=== PATIENT | female | born 1990 | race Caucasian/White ===

== ENCOUNTER 2018-05-12 16:36 | Day surgery (SDC) | payer OTHER ==
[2018-05-12 17:30] VITALS: BMI 46.6
--- NOTE | 2018-05-12 17:42 | PDOC.LDHP ---
Addendum entered and electronically signed by Marcin Dasilva MD 05/12/18 17:58 : 12 point ROS performed. Negative except for what is documented in the HPI. Original Note: Labor and Delivery H&P Chief complaint: abdominal pain HPI: 27 yo at 38 wk. 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 In process of getting dressed, she had pain that started in her RLQ. Once she arrived to work pain was waxing and waning. Was concerned she was in labor and came for evaluation. Pain had resolved by the time she arrived to L&D. Denies LOF or bleeding. Current gestational age (weeks): 37 (37.6) Due date: 05/27/18 Grav: 1 Para: 0 OB History Details: uncomplicated Current complications: none Past Medical History: hypothyroidism- on synthroid Current medications: pre-sukumar vitamins, other (synthroid 75 mcg.) Previous surgical history: other (tonsilecotmy) Allergies/Adverse Reactions: Allergies Allergy/AdvReac Type Severity Reaction Status Date / Time No Known Allergies Allergy Unverified 05/12/18 17:23 Social history: none - Physical Exam Vital signs reviewed and normal: yes General: NAD, resting Heart: RRR Lungs: CTAB Abdomen: other (gravid, RLQ TTP when shifting uterus to the left.) Extremeties: no edema FHT: category 1 - Vaginal Exam cm dilated: 0 (Patient refused) - Plan Plan: other (round ligament pain. given RTC precautions given. D/C home. Discussed with Dr. Britton.) Addendum - Attending - Attending Attestation Date/Time: 05/15/18 0365 I personally evaluated the patient and discussed the management with Dr. Dasilva I agree with the History, Examination, Assessment and Plan documented above with any addition or exceptions noted below. FHT baseline 130's with mod ltv +accels no decel. [place] with irritability not felt by the pt. Reassurance given to the pt. Pt to follow up with Ms Urban as scheduled.
== END 2018-05-12 17:50 | disposition home or self-care (01) ==
LOC: SDC 16:36 → L&D/OP 16:36 → EDSTATUS 16:38 → L&D/OP 17:50
PROVIDERS: ATTEND Advanced Practice Midwife
DX: O99.89 Other specified diseases and conditions complicating pregnancy, childbirth and the puerperium (principal); R10.31 Right lower quadrant pain; O99.283 Endocrine, nutritional and metabolic diseases complicating pregnancy, third trimester; E03.9 Hypothyroidism, unspecified; Z79.899 Other long term (current) drug therapy; Z3A.37 37 weeks gestation of pregnancy
CPT/HCPCS: 99282

== ENCOUNTER 2018-05-25 22:38 | Inpatient (IN) | payer OTHER ==
[~2018-05-25 22:38] MED LIST: Bupivacaine HCl 0.5%/Epinephrine 1:200,000/PF 30 ml Vial ONE
[2018-05-25] MEDS ORDERED: Promethazine HCl 25 MG/ML VIAL IM PRN (22:39)
[2018-05-25] MEDS ORDERED: Zolpidem Tartrate 5 MG TAB PO PRN (22:39)
[2018-05-25] MEDS ORDERED: Carboprost 250 MCG/ML AMP IM PRN (22:39)
[2018-05-25] MEDS ORDERED: Ondansetron PF 4 MG/2 ML Vial IVP PRN (22:39)
[2018-05-25] MEDS ORDERED: Misoprostol 200 MCG TAB PR PRN (22:39)
[2018-05-25] MEDS ORDERED: HYDROcodone/Acetaminophen 5/325 mg Tablet PO PRN ×2 (22:39)
[2018-05-25] MEDS ORDERED: Diphenoxylate HCl/Atropine Tablet PO PRN ×2 (22:39)
[2018-05-25] MEDS ORDERED: Ibuprofen 800 MG TAB PO PRN (22:39)
[2018-05-25] MEDS ORDERED: NS / Oxytocin 40 units/1000ml 1,000 ML IV PRN (22:39)
[2018-05-25] MEDS ORDERED: Lidocaine 1% (PF) 30 ML VIAL SC PRN (22:39)
[2018-05-25] MEDS ORDERED: NS w/ Oxytocin 10 units 500 ML IV SCH (22:45)
[2018-05-25] MEDS: Lactated Ringer's 1,000 ML IV SCH (23:20)
[2018-05-25 23:31] LABS: Hemoglobin 13.8 g/dL (12.0-16.0); Mean Corpuscular HGB CONC 33.1 g/dL (32.0-36.0); Mean Corpuscular Hemoglobin 29.5 pg (27.0-31.0); Mean Corpuscular Volume 89.3 fL (78.0-98.0); Mean Platelet Volume 10.3 fL (7.4-10.4); Platelet Count 205 thou/uL (130-400); RBC Distribution Width 13.1 % (11.5-14.5); Red Blood Cell (RBC) Count 4.66 mill/uL (4.20-5.40)
[2018-05-25 23:46] LABS: ALT (SGPT) 30 U/L (8-55); AST (SGOT) 39 U/L (5-34); Albumin 3.2 g/dL (3.5-5.0); Alkaline Phosphatase 383 U/L (40-150); Anion Gap 17 mmol/L (10-20); BUN (Urea Nitrogen) 9 mg/dL (7.0-18.7); Bilirubin, Total 0.6 mg/dL (0.2-1.2); Calc. Creatinine Clearance 0 mL/min (70-130); Calcium 9.4 mg/dL (7.8-10.44); Carbon Dioxide 16 mmol/L (22-29); Chloride 107 mmol/L (98-107); Estimated GFR-MDRD Greater than 90; Globulin 2.8 g/dL (2.4-3.5); Glucose 89 mg/dL (70-105); Potassium 4.4 mmol/L (3.5-5.1); Sodium 136 mmol/L (136-145)
[2018-05-25] MEDS ORDERED: Fentanyl 4 mcg/Bup 0.1% Cadd 100 ML ONE (23:49)
[2018-05-25] MEDS ORDERED: Fentanyl 100 MCG/2 ML VIAL ONE (23:50)
[2018-05-25] MEDS ORDERED: Lidocaine 1.5% w/Epi 1:200K 30 ML VIAL (Epid Use) ONE (23:51)
[2018-05-26] MEDS ORDERED: Atropine Sulfate 1 mg/10 ml Syringe ONE
[2018-05-26 00:03] LABS: Syphilis Antibody Nonreactive (Nonreactive); Syphilis Antibody Index 0.01 S/CO (<1.00 Non-Reactive)
--- NOTE | 2018-05-26 00:45 | PDOC.LDHP ---
Labor and Delivery H&P Chief complaint: contractions, other (Medically indicated induction of labor for preeclampsia) HPI: Patient denies PATEL, RUQ, pain, vision changes. She reports having a lot of pain in her skin in her lower abdomen and lots of swelling in her legs. Current gestational age (weeks): 39 (and 5 days. ) Due date: 05/27/18 Dating criteria: last menstrual period (verified [facility] first trimester ultrasound) Grav: 1 Para: 0 Current complications: preeclampsia without severe features Abnormal US findings: No Past Medical History: Hypothyroidism Current medications: pre- vitamins, other (levothryoxine 75mcg) Previous surgical history: other (wisdom teetch extraction) Allergies/Adverse Reactions: Allergies Allergy/AdvReac Type Severity Reaction Status Date / Time No Known Allergies Allergy Verified 05/25/18 23:03 Social history: none - Physical Exam Vital signs reviewed and normal: yes General: resting Lungs: nonlabored breathing Abdomen: gravid Extremeties: pitting edema FHT: category 1 (with episodes of a category 2 strip for minimal variability) [place] contractions every: q3 - Vaginal Exam cm dilated: 5 Effacement: 90% Station: -1 - OB Labs Blood type: B RH: positive Antibody Screen: negative HIV: negative RPR: negative HEPSAg: negative 1 hour GCT: negative GBS: negative Urine drug screen: negative Additional Labs: TSH NML Laboratory Tests 05/25/18 05/25/18 05/25/18 23:16 23:16 23:16 WBC Hgb Hct Sodium 136 Potassium 4.4 Chloride 107 Carbon Dioxide 16 L Anion Gap 17 BUN 9 Creatinine 0.74 Estimated GFR (MDRD) Greater than 90 Glucose 89 Calcium 9.4 Total Bilirubin 0.6 AST 39 H ALT 30 Alkaline Phosphatase 383 H Serum Total Protein 6.0 Albumin 3.2 L Globulin 2.8 Albumin/Globulin Ratio 1.1 L Urine Protein Syphilis IgG/IgM Ab Nonreactive Hep Bs Antigen NonReactive 05/25/18 05/26/18 23:16 00:55 WBC 15.0 H Hgb 13.8 Hct 41.7 Sodium Potassium Chloride Carbon Dioxide Anion Gap BUN Creatinine Estimated GFR (MDRD) Glucose Calcium Total Bilirubin AST ALT Alkaline Phosphatase Serum Total Protein Albumin Globulin Albumin/Globulin Ratio Urine Protein 100 H Syphilis IgG/IgM Ab Hep Bs Antigen - Assessment L&D Assessment: medically indicated induction (original diagnosis was preeclampsia. however, with NML blood pressures and proteinuria additional differential diagnosis nephropathy assoicated with .) - Plan Plan: admit to L&D, other -: Admit to L&D. pitocin induction labs for preeclampsia r/o. Anticipate .
[2018-05-26] MEDS: Lactated Ringer's 1,000 ML IV SCH ×2 (00:55→06:23)
[2018-05-26] MEDS ORDERED: Penicillin G Potassium 5 MILL.UNITS VIAL ONE (01:06)
[2018-05-26] MEDS ORDERED: Penicillin G Potassium 5 MILL.UNITS in Sodium Chloride 0.9% 100 ML IVPB SCH (01:15)
[2018-05-26 01:29] LABS: HBSAg Index 0.47 S/CO (0-0.99); Hep B Surf Ag NonReactive S/CO (NonReactive)
[2018-05-26 01:38] VITALS: BMI 48.8
[2018-05-26] MEDS: Penicillin G 2.5 MILL.units 2.5 MILL.UNITS in Premix Bag 1 BAG IVPB SCH ×3 (06:12→19:36)
[2018-05-26] MEDS ORDERED: Fentanyl 4 mcg/Bup 0.1% Cadd 100 ML ONE (08:17)
--- NOTE | 2018-05-26 15:10 | PDOC.OPDEL ---
OB Operative/Delivery Note Delivery Dr/Surgeon: Nolan Urban Pre-Delivery Diagnosis: medically indicated induction Procedure/Post Delivery Dx: spontaneous vaginal delivery Weeks gestation: 39 Anesthesia: epidural - Additional Findings/Plan Placenta delivered: spontaneous Repaired Obstetrical Laceration: 1st degree Estimated blood loss: 300mL Compilations/Other Findings: Large for gestation age fetus - with meconium. cole to room for recovery for low O2 sat at 5-10 mins of life. Placenta to pathology Post delivery plan: routine recovery (conitnued I&Os to monitor post diuresis.)
[2018-05-26] MEDS ORDERED: Benzocaine/Menthol 20-0.5% 60 ML CAN TOP PRN (15:52)
[2018-05-26] MEDS ORDERED: Ondansetron PF 4 MG/2 ML Vial IVP PRN (15:52)
[2018-05-26] MEDS ORDERED: Bisacodyl 10 MG SUPP PR PRN (15:52)
[2018-05-26] MEDS ORDERED: HYDROcodone/Acetaminophen 5/325 mg Tablet PO PRN ×2 (15:52)
[2018-05-26] MEDS ORDERED: Milk Of Magnesia 30 ML UDCUP PO PRN (15:52)
[2018-05-26] MEDS: NS / Oxytocin 40 units/1000ml 1,000 ML IV SCH ×2 (18:08→18:41)
[2018-05-26] MEDS: Ferrous Sulfate 325 MG TAB PO SCH (19:36)
[2018-05-26] MEDS: Docusate Calcium (SURFAK) 240 MG CAP PO SCH (21:39)
[2018-05-26] MEDS: Ibuprofen 800 MG TAB PO SCH (21:40)
[2018-05-27] MEDS: Ibuprofen 800 MG TAB PO SCH ×3 (05:49→21:40)
[2018-05-27 08:10] LABS: ALT (SGPT) 24 U/L (8-55); AST (SGOT) 36 U/L (5-34); Albumin 2.1 g/dL (3.5-5.0); Alkaline Phosphatase 206 U/L (40-150); Anion Gap 9 mmol/L (10-20); BUN (Urea Nitrogen) 8 mg/dL (7.0-18.7); Bilirubin, Total 0.3 mg/dL (0.2-1.2); Calc. Creatinine Clearance 198 mL/min (70-130); Carbon Dioxide 22 mmol/L (22-29); Chloride 112 mmol/L (98-107); Estimated GFR-MDRD Greater than 90; Globulin 2.2 g/dL (2.4-3.5); Glucose 106 mg/dL (70-105); Protein, Total 4.3 g/dL (6.0-8.3); Sodium 139 mmol/L (136-145)
[2018-05-27 08:11] LABS: Hemoglobin 10.1 g/dL (12.0-16.0); Mean Corpuscular HGB CONC 32.5 g/dL (32.0-36.0); Mean Corpuscular Hemoglobin 29.5 pg (27.0-31.0); Mean Corpuscular Volume 90.9 fL (78.0-98.0); Mean Platelet Volume 9.6 fL (7.4-10.4); Platelet Count 192 thou/uL (130-400); RBC Distribution Width 12.9 % (11.5-14.5); Red Blood Cell (RBC) Count 3.44 mill/uL (4.20-5.40); White Blood Cell (WBC) Count 14.3 thou/uL (4.8-10.8)
--- NOTE | 2018-05-27 08:15 | PDOC.PP ---
Post Progress Note Post Day #: 1 PO intake tolerated: yes Flatus: yes Ambulation: yes Vital Signs (12 hours) Temp Pulse Resp BP Pulse Ox 05/27/18 04:50 91 18 102/55 L 97 05/27/18 00:15 98.2 F 97 20 117/59 L 98 Weight Weight 250 lb - Physical Examination Cardiovascular: no m/r/g, RRR Respiratory: clear to auscultation bilaterally, non-labored breathing Abdominal: lochia (minimal) Deviation from normal: edema in the pannus Fundus firm & at: U-2 Deviation from normal: 2+ pitting edema in the bilateral LE Perineum: edematous labia majora bilaterally Neurological: no gross focal deficits Psychiatric: A&Ox3, normal affect Result Diagrams: 05/27/18 07:38 05/27/18 07:38 Additional Labs: Post Labs Blood Type B POSITIVE 05/25/18 23:16 Hep Bs Antigen NonReactive S/CO (NonReactive) 05/25/18 23:16 (1) Proteinuria Code(s): R80.9 - PROTEINURIA, UNSPECIFIED Status: Acute (2) (spontaneous vaginal delivery) Code(s): O80 - ENCOUNTER FOR FULL-TERM UNCOMPLICATED DELIVERY Status: Acute (3) Edema due to hypoalbuminemia Code(s): R60.9 - EDEMA, UNSPECIFIED; E88.09 - OTH DISORDERS OF PLASMA-PROTEIN METABOLISM, NEC Status: Acute - Assessment/Plan Assessment: G1 now P1 s/p . Exam was normal with exception of peripheral edema. Plan: - d/c bradley - I/O in hat on toilet - instructed to ambulate - instructed to pump and hand express milk q3 hours - 2 week f/u visit to monitor proteinuria - refer to nephrology if indicated
[2018-05-27] MEDS: Levothyroxine Sodium 75 MCG TAB PO SCH (08:19)
[2018-05-27] MEDS ORDERED: Adacel (T-DAP) 0.5 ML SYRINGE IM ONE (09:00)
[2018-05-27] MEDS: Docusate Calcium (SURFAK) 240 MG CAP PO SCH ×2 (13:51→21:40)
[2018-05-27] MEDS: Ferrous Sulfate 325 MG TAB PO SCH ×2 (13:51→16:34)
[2018-05-28] MEDS: Levothyroxine Sodium 75 MCG TAB PO SCH (06:03)
[2018-05-28] MEDS: Ibuprofen 800 MG TAB PO SCH ×2 (06:44→14:26)
[2018-05-28 08:25] VITALS: BP 111/62; TEMP 97.7
[2018-05-28] MEDS: Ferrous Sulfate 325 MG TAB PO SCH ×2 (08:37→17:42)
[2018-05-28] MEDS: Docusate Calcium (SURFAK) 240 MG CAP PO SCH (08:40)
== END 2018-05-28 18:15 | disposition home or self-care (01) | DRG 807 ==
LOC: L&D 22:38 → 3SW 05-26 18:01
PROVIDERS: ADMIT Obstetrics & Gynecology; ATTEND Obstetrics & Gynecology
PROC: 10E0XZZ Delivery of Products of Conception, External Approach (ICD-10-PCS; principal; 2018-05-26)
PROC: 10907ZC Drainage of Amniotic Fluid, Therapeutic from Products of Conception, Via Natural or Artificial Opening (ICD-10-PCS; 2018-05-26)
PROC: 3E033VJ Introduction of Other Hormone into Peripheral Vein, Percutaneous Approach (ICD-10-PCS; 2018-05-26)
PROC: 0HQ9XZZ Repair Perineum Skin, External Approach (ICD-10-PCS; 2018-05-26)
DX: O14.94 Unspecified pre-eclampsia, complicating childbirth (principal); Z37.0 Single live birth; O99.284 Endocrine, nutritional and metabolic diseases complicating childbirth; O12.14 Gestational proteinuria, complicating childbirth; E03.9 Hypothyroidism, unspecified; O36.63X0 Maternal care for excessive fetal growth, third trimester, not applicable or unspecified; O99.824 Streptococcus B carrier state complicating childbirth; O70.0 First degree perineal laceration during delivery; O77.0 Labor and delivery complicated by meconium in amniotic fluid; E88.09 Other disorders of plasma-protein metabolism, not elsewhere classified; Z3A.39 39 weeks gestation of pregnancy
CPT/HCPCS: 36415; 51702; 80053; 81003; 85027; 86780; 86850; 86900; 86901; 87340; 88307; J0461; J0670; J2001; J2405; J2540; J3010

== ENCOUNTER 2018-07-25 06:53 | Outpatient (CLI) | payer OTHER ==
--- NOTE | 2018-07-25 07:38 | ULT ---
FUltrasound hepatic Doppler duplex: 07/25/2018 HISTORY: 27-year-old female with abnormal liver function tests. TECHNIQUE: Grayscale images of liver and spleen. Color flow and spectral analysis of Major vessels associated with the liver. FINDINGS: Hepatic echogenicity is diffusely slightly increased. This could be normal or could represent mild fa tty infiltration. No discrete hepatic solid or cystic mass lesion is identified, but ultrasound is mu ch less sensitive for focal hepatic lesions compared to CT with contrast or MRI with contrast. Gallbl adder wall thickness is normal. No pericholecystic fluid. No gallstones or sludge is identified. Comm on duct caliber is 3 mm. Spleen is normal in size, measuring approximately 10.5 x 4 x 5 cm. Nonspecif ic sonographic appearance of the pancreas. Hepatopetal flow flow with appropriate portal venous wavef orms are demonstrated in the main, left, and right portal veins. Hepatofugal flow with appropriate wa veforms are demonstrated in the left, middle, and right hepatic veins. Pulsatile arterial waveforms a re demonstrated in the hepatic artery and splenic artery. IMPRESSION: 1. Questionable hepatic steatosis. 2. Otherwise negative
== END 2018-07-25 06:54 | disposition home or self-care (01) ==
LOC: BICULT 06:53
PROVIDERS: ATTEND Internal Medicine Gastroenterology
DX: R74.0 Nonspecific elevation of levels of transaminase and lactic acid dehydrogenase [LDH] (principal)
CPT/HCPCS: 76705

== ENCOUNTER 2020-05-03 08:30 | Inpatient (IN) | payer OTHER ==
[2020-05-03] MEDS ORDERED: Ondansetron PF 4 MG/2 ML Vial IVP PRN ×2 (09:35→13:23)
[2020-05-03] MEDS ORDERED: Butorphanol Tartrate 1 MG/ML VIAL SLOW IVP PRN (09:35)
[2020-05-03] MEDS ORDERED: NS / Oxytocin 40 units/1000ml 1,000 ML IV PRN (09:35)
[2020-05-03] MEDS ORDERED: Lidocaine 1% (PF) 30 ML VIAL SC PRN (09:35)
[2020-05-03] MEDS ORDERED: HYDROcodone/Acetaminophen 5/325 mg Tablet PO PRN ×2 (09:35)
[2020-05-03] MEDS ORDERED: Promethazine HCl 25 MG/ML VIAL IM PRN ×2 (09:35→13:23)
[2020-05-03] MEDS ORDERED: Ibuprofen 800 MG TAB PO PRN (09:35)
[2020-05-03] MEDS ORDERED: hydrALAZINE 20 MG/ML VIAL SLOW IVP PRN (09:35)
[2020-05-03] MEDS: Lactated Ringer's 1,000 ML IV SCH ×2 (09:45→13:00)
[2020-05-03 10:16] VITALS: BMI 49.6
[2020-05-03 10:28] LABS: Hemoglobin 14.3 g/dL (12.0-16.0); Mean Corpuscular HGB CONC 33.3 g/dL (32.0-36.0); Mean Corpuscular Hemoglobin 29.5 pg (27.0-31.0); Mean Corpuscular Volume 88.4 fL (78.0-98.0); Platelet Count 177 thou/uL (130-400); RBC Distribution Width 12.8 % (11.5-14.5); Red Blood Cell (RBC) Count 4.85 mill/uL (4.20-5.40); White Blood Cell (WBC) Count 9.4 thou/uL (4.8-10.8)
--- NOTE | 2020-05-03 10:43 | PDOC.BPN ---
- Brief Progress Note EFW note: [employer] communication: EFW 4488 grams. Cephalic. I have discussed results at bedside with the patient. Below 5000grams.
--- NOTE | 2020-05-03 10:44 | PDOC.BPN ---
- Brief Progress Note H&P previously dictated about 1 hour ago
--- NOTE | 2020-05-03 10:52 | PDOC.BPN ---
- Brief Progress Note CX /-2 by RN. WARREN. OK for pitcoin as pelvis with delery of similar weight child in past.
--- NOTE | 2020-05-03 10:53 | PDOC.BPN ---
- Brief Progress Note Karin Light updated on status (Light called up to L&D desk for update).
--- NOTE | 2020-05-03 10:59 | ULT ---
EXAM: Obstetrical ultrasound greater than 14 weeks: HISTORY: Term possible macrosomia COMPARISON: None. FINDINGS: Single viable intrauterine fetus is noted in Cephalic presentation. heart rate: 127 bpm. Placenta: Posterior and fundal. Cervical length: 3.1 cm. Amniotic fluid: Within normal limits. Maternal Adnexa:Not visualized anatomy: anatomy visualization was limited. head, four-chamber heart, stomach, kidneys, cord inser t, and urinary bladder were demonstrated. biometry: BPD: 10.4 cm--out of range Head circumference: 35.5 cm--41 weeks 4 days Abdominal circumference: 37.6 cm--41 weeks 4 days Femur length:7.8 cm--40 weeks 1 day IMPRESSION: Gestational age by ultrasound: 40 weeks 5 days SIA by ultrasound: 04/27/2020 Estimated weight: 4422 g
--- NOTE | 2020-05-03 11:04 | HP ---
Time is now 0954 hours. Time of evaluation was roughly 0935 hours. The patient was seen at bedside. The patient is in room LDR 2. REASON FOR EVALUATION: Suspected labor in a patient who is at 39 weeks and 2 days. This is a patient of Isabel Urban. CHIEF COMPLAINT: Contractions about every 3 to 5 minutes since 0530 hours. HISTORY OF PRESENT ILLNESS: This is a 29-year-old G2, P1, who is at 39 weeks and 2 days by sure criteria who sees Isabel Urban for care. She states that she started having contractions about every 3 to 5 minutes and because she has "low pain tolerance," she came in to get evaluated. She also has some complaints of some thick greenish discharge, but denies any evidence of leakage of fluid. She has good movement. She also states that she has hypothyroidism and had a recent blood assessment/TSH done at around 36 weeks with her provider. REVIEW OF SYSTEMS: Per photographic laboratory supervisor: GENERAL: No COVID exposure per protocol. PULMONARY: No shortness of breath. CARDIOVASCULAR: No chest pain. NEUROLOGIC: She has had some on and off "visual changes," but these have not been specific. Per Ale[place], these may have been lights before the eyes. No other migraine history is noted in the chart. MUSCULOSKELETAL/ABDOMINAL: She does have some left upper quadrant discomfort that she states is more with movement. EXTREMITIES: Some bilateral lower extremity edema. PAST MEDICAL HISTORY: Includes having hypothyroidism, which she takes medication for. MEDICATIONS: Include: 1. Synthroid 112 mcg. 2. vitamin. 3. 81 mg of aspirin for preeclampsia prevention. ALLERGIES: NONE. OB HISTORY: She had a vaginal delivery in the past and that child was 9 pounds and 6 ounces. She does not state any difficulty with that delivery. For this , her provider stated that the baby is "about the same." Last ultrasound was around 36 to 37 weeks and was around 7 to 7.5 pounds at that time by her report. PAST SURGICAL HISTORY: Negative. SOCIAL HISTORY: By photographic laboratory supervisor is negative for alcohol, tobacco, or drug use. PHYSICAL EXAMINATION: VITAL SIGNS: First blood pressure was 138/75, next while I was in the room was 116/80; pulse is 81; temperature is 98.6; respirations are unlabored at 18. GENERAL: She is in no acute distress. This is a well-appearing female. ABDOMEN: Obviously gravid with EFW difficult to determine based on her BMI. PELVIC: Cervical exam by RN revealed the cervix to be 3 cm dilated, 75% effaced, -2 station, but still somewhat posterior. There was no gross evidence of rupture on exam, but there was some thick yellowish curd-like discharge compatible with possible yeast infection. EXTREMITIES: She did have bilateral 2+ edema per initial assessment. monitor: I evaluated the monitor for this patient. At baseline is around 140s with moderate variability. Accelerations are noted. There are no pathological decelerations. Contractions on tocodynamometer shows low amplitude contractions, but this may be due to her BMI. They are anywhere from every 3 to 5 minutes or so, but again she has not been on the strip for that long. Entire strip now is only about 20 minutes or so. ASSESSMENT: This is a 29-year-old G2, P1, at 39 weeks and 2 days, GBS negative, hypothyroid with apparently good control by her history with a history of macrosomia. She does not have gestational diabetes. She seems to be in latent labor at 3 cm, bag of water intact. PLAN: 1. I have evaluated the patient at bedside and I discussed with her history of macrosomia. I also discussed with her the chance of macrosomia recurrence with her estimated weight here that looks about the same as before (around 9 pounds). I did discuss with her the limitations of physical exam in determining the EFW. 2. Based on her history of macrosomia, I did discuss with her a bedside ultrasound by the department and this has been ordered. 3. I did explain to the patient that if the estimated weight on the ultrasound is close to 5000 g (5 kg), that the ACOG recommends discussion about alternative vaginal delivery ( section). 4. GBS negative. 5. I did not order a TSH because she had one recently and apparently is under good control. 6. She had a borderline blood pressure of 138/75 on admission and I have ordered a complete metabolic panel to make sure there are no lab abnormalities. Repeat blood pressure was normal. We will follow. Job ID: [id number]
[2020-05-03 11:22] LABS: HBSAg Index 0.17 S/CO (0-0.99); HIV (1/2) Antibody/Antigen Non-Reactive (NonReactive); HIV 1/2 INDEX 0.12 S/CO (<1.00); Hep B Surf Ag Non-Reactive S/CO (NonReactive)
[2020-05-03] MEDS ORDERED: Fentanyl 4 mcg/Bup 0.1% Cadd 100 ML ONE ×2 (11:25→20:18)
[2020-05-03 11:28] LABS: Syphilis Antibody Nonreactive (Nonreactive); Syphilis Antibody Index 0.03 S/CO (<1.00 Non-Reactive)
[2020-05-03 11:41] LABS: ALT (SGPT) 17 U/L (8-55); AST (SGOT) 19 U/L (5-34); Albumin 3.4 g/dL (3.5-5.0); Alkaline Phosphatase 124 U/L (40-110); Anion Gap 17 mmol/L (10-20); BUN (Urea Nitrogen) 8 mg/dL (7.0-18.7); Bilirubin, Total 0.7 mg/dL (0.2-1.2); Calc. Creatinine Clearance 254 mL/min (70-130); Calcium 8.8 mg/dL (7.8-10.44); Carbon Dioxide 20 mmol/L (22-29); Chloride 106 mmol/L (98-107); Globulin 2.5 g/dL (2.4-3.5); Glucose 88 mg/dL (70-105); Potassium 4.4 mmol/L (3.5-5.1); Protein, Total 5.9 g/dL (6.0-8.3); Sodium 139 mmol/L (136-145)
[2020-05-03] MEDS ORDERED: NS w/ Oxytocin 30 units 500 ML IVPB SCH (12:15)
--- NOTE | 2020-05-03 13:02 | PDOC.BPN ---
- Brief Progress Note Doing well. Patient strongly desires trial of vaginal . Addressed with her and with RN. Continue current plan.
[2020-05-03] MEDS ORDERED: Lactated Ringer's 500 ML IV PRN (13:23)
[2020-05-03] MEDS ORDERED: diphenhydrAMINE 50 MG/ML VIAL IVP PRN (13:23)
[2020-05-03] MEDS ORDERED: Acetaminophen 325 MG TAB PO PRN (13:23)
[2020-05-03] MEDS ORDERED: ePHEDrine 50 MG/ML VIAL SLOW IVP PRN (13:23)
[2020-05-03] MEDS ORDERED: Naloxone HCl 0.4 mg/ml Vial IVP PRN ×2 (13:23)
[2020-05-03] MEDS ORDERED: Communication Order-Pharmacy FS SCH (13:30)
[2020-05-03] MEDS ORDERED: Fentanyl 4 mcg/Bupivacaine 0.1% Cassette 100 ML EPIDURAL SCH (13:30)
--- NOTE | 2020-05-03 15:43 | PDOC.BPN ---
- Brief Progress Note Encounter Date: 05/03/20 Encounter Time: 15:38 AROM - clear fluid IUPC placed FSE placed.
[2020-05-03] MEDS ORDERED: Dextrose 5%-Lactated Ringers 1,000 ML IV PRN (16:22)
[2020-05-03 17:43] LABS: SARS-CoV-2 MS2 Positive; SARS-CoV-2 N Gene Negative; SARS-CoV-2 S Gene Negative; SARS-CoV-2 by NAA Not Detected (NotDetected); SARS-CoV-2 orf1ab Negative
--- NOTE | 2020-05-04 | PDOC.OPDEL ---
OB Operative/Delivery Note Delivery Dr/Surgeon: Light Pre-Delivery Diagnosis: active labor Procedure/Post Delivery Dx: spontaneous vaginal delivery Anesthesia: epidural - Findings A Sex: male - Additional Findings/Plan Placenta delivered: manual removal Repaired Obstetrical Laceration: none Compilations/Other Findings: shoulder dystocia resolved with Edie Post delivery plan: routine recovery
[2020-05-04] MEDS ORDERED: Misoprostol 200 MCG TAB ONE (00:42)
[2020-05-04] MEDS ORDERED: NS w/ Oxytocin 30 units 500 ML ONE (00:42)
[2020-05-04] MEDS ORDERED: Carboprost 250 MCG/ML AMP ONE (00:52)
--- NOTE | 2020-05-04 00:56 | PDOC.BPN ---
- Brief Progress Note PP patient eval in LDR2. See dictated note
--- NOTE | 2020-05-04 01:10 | PRG ---
DATE OF SERVICE: 05/04/2020 The time of evaluation was roughly [id number], is now 0054. LOCATION: Labor and Delivery in bed 2. REASON FOR EVALUATION: Suspected , retained clot in the lower uterine segment. EVALUATION: I was asked by the patient's nurse to evaluate the patient for possible retained clot in the lower uterine segment as her fundus seemed to be a little bit higher than usual and she was having some bleeding. Patient had already received Cytotec 800 mcg. Her EBL at delivery was roughly 330 mL per Fide, the patient's nurse. First thing that I did was empty the patient's bladder by in and out cath, and I got 250 mL of urine. Then with a sterile glove, I entered the vagina and in the lower uterine segment through the cervix, I was able to express 250 mL of clot. This was weighed and the number was confirmed at 250 mL. 250 + 330 brings her just under 600 mL of blood loss. I explained this to her. I did order also Hemabate 250 mcg x1. DIAGNOSIS: Lower uterine segment atony with retained clots, which were expressed by manual expression. The patient tolerated the procedure well, and there were no complications noted. Job ID: [id number]
[2020-05-04] MEDS ORDERED: Carboprost 250 MCG/ML AMP IM SCH (01:15)
[2020-05-04] MEDS: Lactated Ringer's 1,000 ML IV SCH (02:26)
[2020-05-04] MEDS ORDERED: Misoprostol 200 MCG TAB VAG PRN (02:44)
[2020-05-04] MEDS ORDERED: Milk Of Magnesia 30 ML UDCUP PO PRN (02:44)
[2020-05-04] MEDS ORDERED: Bisacodyl 10 MG SUPP PR PRN (02:44)
[2020-05-04] MEDS ORDERED: Benzocaine-Menthol 82.5 ML CAN TOP PRN (02:44)
[2020-05-04] MEDS ORDERED: Methylergonovine 0.2 MG/ML VIAL IM PRN (02:44)
[2020-05-04] MEDS ORDERED: hydrALAZINE 20 MG/ML VIAL SLOW IVP PRN (02:44)
[2020-05-04] MEDS ORDERED: NS / Oxytocin 40 units/1000ml 1,000 ML IV SCH (02:44)
[2020-05-04] MEDS ORDERED: HYDROcodone/Acetaminophen 5/325 mg Tablet PO PRN ×2 (02:44)
[2020-05-04] MEDS ORDERED: Lanolin Ointment 7 GM TUBE TOP PRN (02:44)
[2020-05-04] MEDS ORDERED: NS w/ Oxytocin 30 units 500 ML IV SCH (03:00)
[2020-05-04] MEDS: Ibuprofen 800 MG TAB PO SCH ×3 (06:45→20:41)
[2020-05-04] MEDS: Ferrous Sulfate 325 MG TAB PO SCH ×2 (08:23→17:31)
[2020-05-04] MEDS: Docusate Calcium (SURFAK) 240 MG CAP PO SCH ×2 (08:28→20:40)
[2020-05-04] MEDS: Prenatal Vitamin 1 TAB PO SCH (08:28)
[2020-05-04] MEDS ORDERED: Adacel (T-DAP) 0.5 ML SYRINGE IM ONE (09:00)
--- NOTE | 2020-05-04 18:19 | PDOC.PP ---
Post Progress Note Post Day #: 1 Subjective: is doing well. She is sore, but nothing to bad. Able to ambulate and urinate independently PO intake tolerated: yes Flatus: yes Ambulation: yes Vital Signs (12 hours) Temp Pulse Resp BP Pulse Ox 05/04/20 17:06 98.8 F 100 12 97/49 L 97 05/04/20 11:49 98.0 F 94 20 104/54 L 96 05/04/20 08:23 97 05/04/20 08:14 98.0 F 90 20 92/50 L 97 Weight Weight 254 lb - Physical Examination General: NAD Respiratory: non-labored breathing Extremities: negative homans (B) Skin: no rash Neurological: no gross focal deficits Psychiatric: A&Ox3, normal affect Result Diagrams: 05/03/20 10:17 05/03/20 10:17 Additional Labs: Post Labs Hep Bs Antigen Non-Reactive S/CO (NonReactive) 05/03/20 10:17 Blood Type B POSITIVE 05/03/20 10:17 (1) (spontaneous vaginal delivery) Code(s): O80 - ENCOUNTER FOR FULL-TERM UNCOMPLICATED DELIVERY Status: Acute - Assessment/Plan A: sp with nml PPD one exam P: routine care discharge home tomorrow
[2020-05-05] MEDS: Ibuprofen 800 MG TAB PO SCH (05:37)
[2020-05-05 08:18] VITALS: BP 101/62; TEMP 97.9
[2020-05-05] MEDS: Ferrous Sulfate 325 MG TAB PO SCH (08:31)
[2020-05-05] MEDS: Prenatal Vitamin 1 TAB PO SCH (08:46)
[2020-05-05] MEDS: Docusate Calcium (SURFAK) 240 MG CAP PO SCH (08:46)
== END 2020-05-05 12:05 | disposition home or self-care (01) | DRG 806 ==
LOC: L&D/OP 08:30 → L&D 09:35 → 3SW 05-04 03:30
PROVIDERS: ADMIT Obstetrics & Gynecology; ATTEND Obstetrics & Gynecology
PROC: 10E0XZZ Delivery of Products of Conception, External Approach (ICD-10-PCS; principal; 2020-05-03)
PROC: 10H07YZ Insertion of Other Device into Products of Conception, Via Natural or Artificial Opening (ICD-10-PCS; 2020-05-03)
PROC: 10907ZC Drainage of Amniotic Fluid, Therapeutic from Products of Conception, Via Natural or Artificial Opening (ICD-10-PCS; 2020-05-03)
PROC: 3E033VJ Introduction of Other Hormone into Peripheral Vein, Percutaneous Approach (ICD-10-PCS; 2020-05-03)
PROC: 3E0P7VZ Introduction of Hormone into Female Reproductive, Via Natural or Artificial Opening (ICD-10-PCS; 2020-05-03)
PROC: 10D17Z9 Manual Extraction of Products of Conception, Retained, Via Natural or Artificial Opening (ICD-10-PCS; 2020-05-04)
DX: O66.0 Obstructed labor due to shoulder dystocia (principal); O72.2 Delayed and secondary postpartum hemorrhage; Z37.0 Single live birth; Z20.822 Contact with and (suspected) exposure to COVID-19; O99.284 Endocrine, nutritional and metabolic diseases complicating childbirth; E03.9 Hypothyroidism, unspecified; Z3A.39 39 weeks gestation of pregnancy
CPT/HCPCS: 36415; 51702; 76805; 80053; 85027; 86780; 86850; 86900; 86901; 87340; 87389; 87635; 99285; J2405; J2590; J3490; U0003

== ENCOUNTER 2020-08-15 12:50 | Observation (INO) | payer OTHER ==
[2020-08-15 13:35] LABS: #Neutrophils 7.8 thou/uL (1.40-6.50); %Basophils 0.1 % (0.0-1.0); %Eosinophils 0.3 % (0.0-10.0); %Lymphocytes 25.5 % (21.0-51.0); %Monocytes 8.4 % (0.0-10.0); %Neutrophils 65.6 % (42.0-75.0); Hemoglobin 15.1 g/dL (12.0-16.0); Mean Corpuscular Hemoglobin 27.8 pg (27.0-31.0); Mean Corpuscular Volume 86.9 fL (78.0-98.0); Mean Platelet Volume 8.4 fL (7.4-10.4); Platelet Count 268 thou/uL (130-400); RBC Distribution Width 12.2 % (11.5-14.5); Red Blood Cell (RBC) Count 5.42 mill/uL (4.20-5.40); White Blood Cell (WBC) Count 11.9 thou/uL (4.8-10.8)
[2020-08-15] MEDS ORDERED: Fentanyl 100 MCG/2 ML VIAL ONE (13:42)
[2020-08-15] MEDS ORDERED: Ondansetron PF 4 MG/2 ML Vial ONE (13:43)
[2020-08-15 13:58] LABS: ALT (SGPT) 62 U/L (8-55); AST (SGOT) 41 U/L (5-34); Albumin 4.6 g/dL (3.5-5.0); Alkaline Phosphatase 86 U/L (40-110); Anion Gap 15 mmol/L (10-20); BUN (Urea Nitrogen) 12 mg/dL (7.0-18.7); Bilirubin, Total 1.8 mg/dL (0.2-1.2); Calc. Creatinine Clearance 0 mL/min (70-130); Calcium 9.3 mg/dL (7.8-10.44); Carbon Dioxide 27 mmol/L (22-29); Chloride 103 mmol/L (98-107); Globulin 3.1 g/dL (2.4-3.5); Glucose 100 mg/dL (70-105); Lipase 34 U/L (8-78); Protein, Total 7.7 g/dL (6.0-8.3); Sodium 141 mmol/L (136-145)
[2020-08-15 15:21] LABS: Bilirubin Negative (Negative); Blood, Urine Negative (Negative); Clarity Clear (Clear); Glucose, Urine (Dipstick) Normal (Negative); Ketone, Urine 10 mg/dL (Negative); Leukocyte 250 Leu/uL (Negative); Nitrite Negative (Negative); Protein, Urine (Dipstick) 20 mg/dL (Neg-Trace); RBC/HPF 0-3 HPF (0-3); Specific Gravity, Urine 1.034 (1.002-1.036); Urobilinogen Normal mg/dL (Less than 2); pH, Urine 6.5 (5.0-9.0)
[2020-08-15 15:22] LABS: Bacteria/HPF 1+ HPF (None Seen)
[2020-08-15] MEDS ORDERED: Morphine 4 MG/ML VIAL SLOW IVP PRN (15:29)
[2020-08-15] MEDS ORDERED: Dextrose 5% in Water 1,000 ML IV PRN (15:29)
[2020-08-15] MEDS ORDERED: Promethazine HCl 25 MG/ML VIAL IM PRN (15:29)
[2020-08-15] MEDS ORDERED: Dextrose 50% Abboject 50 ML SYRINGE SLOW IVP PRN (15:29)
[2020-08-15] MEDS ORDERED: Morphine 2 MG/ML VIAL SLOW IVP PRN (15:29)
[2020-08-15] MEDS ORDERED: Mag-Al 1200 mg/1200 mg/30 ML UDCUP PO PRN (15:29)
[2020-08-15] MEDS ORDERED: Ondansetron PF 4 MG/2 ML Vial IVP PRN (15:29)
[2020-08-15] MEDS ORDERED: Calcium Carbonate 500 MG ChewTAB PO PRN (15:29)
[2020-08-15] MEDS ORDERED: hydrALAZINE 20 MG/ML VIAL SLOW IVP PRN (15:29)
[2020-08-15] MEDS ORDERED: Pantoprazole 40 MG VIAL IVP SCH (15:45)
[2020-08-15 16:23] VITALS: BMI 43.9
[2020-08-15] MEDS: D5 1/2 NS w/20 mEq KCL 1,000 ML IV SCH (16:47)
[2020-08-15] MEDS: HYDROcodone/Acetaminophen 7.5/325 mg Tablet PO PRN (17:53)
[2020-08-15 21:48] LABS: SARS-CoV-2 PCR by NAA Not Detected (NotDetected)
[2020-08-16] MEDS: HYDROcodone/Acetaminophen 7.5/325 mg Tablet PO PRN ×3 (00:14→21:34)
[2020-08-16] MEDS: Ketorolac Tromethamine 30 MG/ML VIAL IVP PRN (01:06)
[2020-08-16] MEDS: D5 1/2 NS w/20 mEq KCL 1,000 ML IV SCH ×4 (01:40→17:44)
[2020-08-16] MEDS: Pantoprazole 40 MG VIAL IVP SCH (12:16)
[2020-08-16] MEDS ORDERED: Midazolam HCl 2 mg/2 ml Vial ONE (13:59)
[2020-08-16] MEDS ORDERED: PROPOFOL 200 MG/20 ML VIAL ONE (14:20)
[2020-08-16] MEDS ORDERED: Ondansetron HCl/PF 4 MG/2 ML Vial IVP PRN (14:39)
[2020-08-16] MEDS ORDERED: Promethazine HCl 25 MG/ML VIAL SLOW IVP PRN (14:39)
[2020-08-16] MEDS ORDERED: Promethazine HCl 25 MG/ML VIAL IM PRN (14:39)
[2020-08-16] MEDS ORDERED: Polyethylene Glycol 3350 17 GM Packet PO SCH (15:30)
[2020-08-16 21:53] LABS: #Eosinphils 0.1 thou/uL (0.0-0.7); #Lymphocytes 2.7 thou/uL (1.20-3.40); #Monocytes 0.8 thou/uL (0.11-0.59); #Neutrophils 5.1 thou/uL (1.40-6.50); %Basophils 0.5 % (0.0-1.0); %Eosinophils 1.2 % (0.0-10.0); %Lymphocytes 31.1 % (21.0-51.0); %Monocytes 9.1 % (0.0-10.0); Hemoglobin 13.7 g/dL (12.0-16.0); Mean Corpuscular HGB CONC 32.8 g/dL (32.0-36.0); Mean Corpuscular Hemoglobin 28.9 pg (27.0-31.0); Mean Corpuscular Volume 88.1 fL (78.0-98.0); Mean Platelet Volume 8.2 fL (7.4-10.4); Platelet Count 231 thou/uL (130-400); Red Blood Cell (RBC) Count 4.73 mill/uL (4.20-5.40); White Blood Cell (WBC) Count 8.7 thou/uL (4.8-10.8)
[2020-08-16 21:58] LABS: Prothrombin Time 13.3 sec (12.0-14.7)
[2020-08-16 22:16] LABS: ALT (SGPT) 46 U/L (8-55); AST (SGOT) 26 U/L (5-34); Alkaline Phosphatase 73 U/L (40-110); Anion Gap 11 mmol/L (10-20); BUN (Urea Nitrogen) 10 mg/dL (7.0-18.7); Bilirubin, Total 1.2 mg/dL (0.2-1.2); Calc. Creatinine Clearance 187 mL/min (70-130); Calcium 8.7 mg/dL (7.8-10.44); Carbon Dioxide 28 mmol/L (22-29); Chloride 104 mmol/L (98-107); Globulin 2.9 g/dL (2.4-3.5); Glucose 96 mg/dL (70-105); Iron 31 ug/dL (50-170); Iron Binding Capacity, Total 330 mcg/dL (265-497); Potassium 3.9 mmol/L (3.5-5.1); Protein, Total 6.9 g/dL (6.0-8.3); Sodium 139 mmol/L (136-145)
[2020-08-17] MEDS: D5 1/2 NS w/20 mEq KCL 1,000 ML IV SCH ×2 (00:07→09:19)
[2020-08-17] MEDS: Ketorolac Tromethamine 30 MG/ML VIAL IVP PRN (00:14)
[2020-08-17 00:48] LABS: HBCM Index 0.07 S/CO (0-0.79); HBSAg Index 0.23 S/CO (0-0.99); Hep A IgM AB Non-Reactive (NonReactive); Hep A IgM S/CO 0.14 S/CO (0-0.79); Hep B Surf Ag Non-Reactive S/CO (NonReactive); Hep C IgG Ab Non-Reactive (NonReactive); Hep C Index 0.09 S/CO (0-0.79); Hepatitis B Core IgM Abs Non-Reactive (NonReactive)
[2020-08-17 06:28] LABS: #Eosinphils 0.2 thou/uL (0.0-0.7); #Lymphocytes 3.2 thou/uL (1.20-3.40); #Monocytes 0.9 thou/uL (0.11-0.59); #Neutrophils 3.8 thou/uL (1.40-6.50); %Basophils 0.2 % (0.0-1.0); %Eosinophils 2.2 % (0.0-10.0); %Lymphocytes 39.4 % (21.0-51.0); %Neutrophils 47.1 % (42.0-75.0); Hemoglobin 12.6 g/dL (12.0-16.0); Mean Corpuscular HGB CONC 31.5 g/dL (32.0-36.0); Mean Corpuscular Hemoglobin 27.8 pg (27.0-31.0); Mean Corpuscular Volume 88.2 fL (78.0-98.0); Mean Platelet Volume 8.7 fL (7.4-10.4); Platelet Count 212 thou/uL (130-400); Red Blood Cell (RBC) Count 4.53 mill/uL (4.20-5.40); White Blood Cell (WBC) Count 8.2 thou/uL (4.8-10.8)
[2020-08-17] MEDS: HYDROcodone/Acetaminophen 7.5/325 mg Tablet PO PRN ×2 (06:37→14:51)
[2020-08-17 06:48] LABS: ALT (SGPT) 37 U/L (8-55); AST (SGOT) 21 U/L (5-34); Albumin 3.5 g/dL (3.5-5.0); Alkaline Phosphatase 63 U/L (40-110); Anion Gap 12 mmol/L (10-20); BUN (Urea Nitrogen) 12 mg/dL (7.0-18.7); Bilirubin, Total 0.9 mg/dL (0.2-1.2); Calc. Creatinine Clearance 201 mL/min (70-130); Calcium 8.6 mg/dL (7.8-10.44); Carbon Dioxide 24 mmol/L (22-29); Chloride 106 mmol/L (98-107); Globulin 2.6 g/dL (2.4-3.5); Glucose 102 mg/dL (70-105); Potassium 3.9 mmol/L (3.5-5.1); Protein, Total 6.1 g/dL (6.0-8.3); Sodium 138 mmol/L (136-145)
[2020-08-17] MEDS ORDERED: Polyethylene Glycol 3350 17 GM Packet PO SCH (09:00)
[2020-08-17] MEDS: Pantoprazole 40 MG VIAL IVP SCH (09:19)
[2020-08-17 11:12] VITALS: BP 116/68; TEMP 97.9
[2020-08-17] MEDS ORDERED: Magnevist 469MG/ML 20 ML VIAL ONE (12:57)
[2020-08-17 14:07] LABS: ANA Symphony (Qualitative) Negative (Negative); ANA Symphony (Quantitative) 0.1 Ratio (< 0.7 Negative); EliA Vaculitis New Method **** NEW METHOD ****; Mitochondrial Ab 0.9 U/mL (<4 Negative); dsDNA IgG Antibody 4.9 IU/mL (<10 Negative)
== END 2020-08-17 15:20 | disposition home or self-care (01) ==
LOC: ERS 12:50 → SURG B 14:23
PROVIDERS: ADMIT Surgery; ATTEND Surgery
PROC: 0DJ08ZZ Inspection of Upper Intestinal Tract, Via Natural or Artificial Opening Endoscopic (ICD-10-PCS; principal; 2020-08-16)
DX: R10.11 Right upper quadrant pain (principal); E03.9 Hypothyroidism, unspecified; K76.0 Fatty (change of) liver, not elsewhere classified; E66.9 Obesity, unspecified; Z68.41 Body mass index [BMI] 40.0-44.9, adult; Z79.899 Other long term (current) drug therapy; Z20.822 Contact with and (suspected) exposure to COVID-19
CPT/HCPCS: 36415; 74183; 76705; 78227; 80053; 80074; 81003; 81015; 83516; 83540; 83550; 83690; 85025; 85610; 86038; 86225; 87635; 96374; 96375; 96376; A9537; A9579; C9113; G0378; J1885; J2250; J2405; J2704; J3010; J3480; U0003; U0005